=== PATIENT | female | born 1960 | race Caucasian/White ===

== ENCOUNTER → 2017-02-21 | Outpatient (CLI) | payer OTHER ==
[~2017-02-21] MED LIST: ADVIN10050 INH; FLNIN NAE; IBUP600T44 PO; OXYC-57 PO; PARO10TA3 PO; SUMA50TA15 PO; TOPI50TA24 OR; VITAMIN D2 OR; ZYRUNK PO
== END | disposition home or self-care (01) ==
LOC: C.PATHSPEC 17:26
PROVIDERS: ATTEND Family Medicine
DX: L98.8 Other specified disorders of the skin and subcutaneous tissue (principal)